=== PATIENT | male | born 1950 | race Caucasian/White ===

== ENCOUNTER 2016-11-18 07:29 | Emergency (ER) | payer MEDICARE, OTHER ==
--- NOTE | 2016-11-18 07:51 | ED Physician Documentation ---
Skin Rash - HISTORIAN Historian: patient - HPI Chief Complaint: Skin Rash Additional Information: tender swollen area Left scrotum x 2 days . stated that it drained some this am. Onset: days ago Timing: still present Duration: worse Location: other (Left groin scrotum) Quality: painful Identified Cause?: No Context: Medication Exposure: none Context: Food Exposure: none Further Comments: no - ROS CONST: none CVS/RESP: none EYES/ENT: none GI/: none MS/SKIN/LYMPH: none NEURO/PSYCH: none - PAST HX Past History: hypertension, other (copd) Surgeries/Procedures: Yes (appendix, Lung CA) Allergies/Adverse Reactions: Allergies Allergy/AdvReac Type Severity Reaction Status Date / Time oxycodone Allergy Severe Anaphylaxis Verified 11/18/16 07:40 Penicillins Allergy Severe Anaphylaxis Verified 11/18/16 07:40 diphenhydramine HCl AdvReac Severe Hallucinati Verified 11/18/16 07:40 [From Benadryl] ons Home Medications: Ambulatory Orders Medication Instructions Recorded Aspirin [Aspir 81] 81 mg PO DAILY u2 01/20/13 Diltiazem HCl [Cardizem LA] 240 mg PO D 02/14/15 Lisinopril [Zestril] 40 mg PO D 02/14/15 Pravastatin Sodium [Pravachol] 10 mg PO D 02/14/15 Albuterol Sulfate [Albuterol 1.25 mg INH DIRECTED 03/22/16 Sulfate] Albuterol Sulfate [Ventolin] 1 spray INH DIRECTED 03/22/16 Arformoterol Tartrate [Brovana] 1 pkg INH Q12 03/22/16 Budesonide [Budesonide] 1 spray INH Q12 03/22/16 Montelukast Sodium [Singulair] 10 mg PO D 03/22/16 - SOCIAL HX Smoking History: cigarettes, less than 1 pack/day Alcohol Use: none Drug Use: none - FAMILY HX Family History: other (AMI) - VITAL SIGNS Vital Signs: Vital Signs Temp Pulse Resp BP Pulse Ox 100.0 F H 82 18 143/51 95 11/18/16 07:43 11/18/16 07:43 11/18/16 07:43 11/18/16 07:43 11/18/16 07:43 - REVIEWED ASSESSMENTS Nursing Assessment Reviewed: Yes Vitals Reviewed: Yes Progress - Results/Orders Results/Orders: spoke with Dr Luis, surg resident at [facility] accepted transfer and said do ER ER transfer, when asked , the transfer nurse stated Dr Sena would notify the ER. I suggested POV transport and they agreed. Told all this to pt and he agreed. Pt told nothing PO on the way to their ER. Skin Rash Physical Exam - EXAM General Appearance: no acute distress, alert Skin: tender indurated area, pointing fluctuant with erythema Location: other (Left groin , scrotum) Character: erythematous Symptoms: warmth, tenderness, swelling, induration, thickening Extremities: non-tender EENT: eyes nml inspection Neck: trachea midline Respiratory: no resp distress CVS: reg. rate & rhythm Abdomen: non-tender Neuro/Psych: oriented x3 Discharge Clincal Impression: Scrotal abscess, Obesity (BMI 35.0-39.9 without comorbidity) Hypertension Qualifiers: Hypertension type: essential hypertension Qualified Code(s): I10 - Essential ( primary) hypertension Referrals: Irma Ortiz MD [Primary Care Provider] - 2 Days Home Medications: Ambulatory Orders Aspirin [Aspir 81] 81 mg PO DAILY u2 01/20/13 Diltiazem HCl [Cardizem LA] 240 mg PO D 02/14/15 Lisinopril [Zestril] 40 mg PO D 02/14/15 Pravastatin Sodium [Pravachol] 10 mg PO D 02/14/15 Albuterol Sulfate [Albuterol Sulfate] 1.25 mg INH DIRECTED 03/22/16 Albuterol Sulfate [Ventolin] 1 spray INH DIRECTED 03/22/16 Arformoterol Tartrate [Brovana] 1 pkg INH Q12 03/22/16 Budesonide [Budesonide] 1 spray INH Q12 03/22/16 Montelukast Sodium [Singulair] 10 mg PO D 03/22/16 Condition: Stable Disposition: 02 XFER SHT-TRM HOSP Decision to Admit: NO Date of Decison to Admit: 11/18/16 Decision Time: 08:18
[2016-11-18 08:29] VITALS: BP 147/62
== END 2016-11-18 08:27 | disposition short-term general hospital (02) ==
LOC: ED 07:29
DX: N49.2 Inflammatory disorders of scrotum (principal); E66.8 Other obesity; Z68.39 Body mass index [BMI] 39.0-39.9, adult
CPT/HCPCS: 99284

== ENCOUNTER 2016-11-23 09:58 | Outpatient (CLI) | payer MEDICARE, OTHER | END 2016-11-23 10:00 | LOC: INF 09:58 | PROVIDERS: ATTEND Family Medicine | DX: N49.2 Inflammatory disorders of scrotum (principal) | CPT/HCPCS: G0463 ==

== ENCOUNTER 2016-11-24 09:47 | Outpatient (CLI) | payer MEDICARE, OTHER | END 2016-11-24 10:00 | LOC: OUT 09:47 | PROVIDERS: ATTEND Family Medicine | DX: N49.2 Inflammatory disorders of scrotum (principal) | CPT/HCPCS: G0463 ==

== ENCOUNTER 2016-11-30 09:47 | Outpatient (CLI) | payer MEDICARE, OTHER | END 2016-11-30 11:04 | LOC: OUT 09:47 | PROVIDERS: ATTEND Family Medicine | DX: N49.2 Inflammatory disorders of scrotum (principal) | CPT/HCPCS: G0463 ==

== ENCOUNTER 2016-12-01 10:12 | Outpatient (CLI) | payer MEDICARE, OTHER | END 2016-12-01 10:14 | LOC: OUT 10:12 | PROVIDERS: ATTEND Family Medicine | DX: N49.2 Inflammatory disorders of scrotum (principal) | CPT/HCPCS: G0463 ==

== ENCOUNTER 2016-12-07 10:03 | Outpatient (CLI) | payer MEDICARE, OTHER | END 2016-12-07 10:04 | LOC: LAB 10:03 | PROVIDERS: ATTEND Family Medicine | DX: N49.2 Inflammatory disorders of scrotum (principal) | CPT/HCPCS: G0463 ==

== ENCOUNTER 2016-12-08 09:43 | Outpatient (CLI) | payer MEDICARE, OTHER | END 2016-12-08 09:44 | LOC: LAB 09:43 | PROVIDERS: ATTEND Family Medicine | DX: N49.2 Inflammatory disorders of scrotum (principal) | CPT/HCPCS: G0463 ==

== ENCOUNTER 2018-08-04 08:03 | Inpatient (IN) | payer MEDICARE, OTHER ==
--- NOTE | 2018-08-04 08:08 | ED Physician Documentation ---
Dyspnea - HISTORIAN Historian: patient - HPI Stated Complaint: shortness of breath Chief Complaint: Wheezing Additional Information: Patient, with PMH of COPD, CHF, Afib, HTN, lung cancer (s/p ZEN lobectomy) presents to ED with a 2 day history of increasing shortness of breath and wheezing. Patient reports cough started 2 days ago with some nasal congestion. He states his symptoms progressed ROLON after 10 minutes of exertion. Today he woke up more short of breath and wheezing. Patient has COPD and wears oxygen ( 2-3 liters) at night). During his last PCP appointment his "water pill" was increased for his lower extremity swelling. He states it hasn't helped much. Patient denies fever, chest pain, nausea/vomiting. Onset: days ago (2) Duration: continues in ED, worse Initiating Event: upper respiratory illness Severity: moderate Exacerbated By: exertion Associated Symptoms: chest discomfort, productive cough. denies: chills, fever, chest pain - ROS CONST: no problems EYES/ENT: nasal congestion GI/: denies: abdominal pain, vomiting, nausea NEURO/PSYCH: denies: headache MS/SKIN/LYMPH: denies: muscle aches - PAST HX Lung Disease: COPD Cardiac Disease: CHF PE Risk Factors: hypertension Surgeries/Procedures: other (lobectomy secondary to lung cancer) Other History: none Allergies/Adverse Reactions: Allergies Allergy/AdvReac Type Severity Reaction Status Date / Time oxycodone Allergy Severe Anaphylaxis Verified 08/04/18 08:25 Penicillins Allergy Severe Anaphylaxis Verified 08/04/18 08:25 diphenhydramine HCl AdvReac Severe Hallucinati Verified 08/04/18 08:25 [From Benadryl] ons Home Medications: Ambulatory Orders Medication Instructions Recorded Aspirin [Aspir 81] 81 mg PO DAILY u2 01/20/13 Diltiazem HCl [Cardizem LA] 240 mg PO D 02/14/15 Lisinopril [Zestril] 40 mg PO D 02/14/15 Pravastatin Sodium [Pravachol] 10 mg PO D 02/14/15 Albuterol Sulfate 1.25 mg INH DIRECTED 03/22/16 Albuterol Sulfate [Ventolin] 1 spray INH DIRECTED 03/22/16 Arformoterol (Nf) [Brovana] 1 pkg INH Q12 03/22/16 Budesonide 1 spray INH Q12 03/22/16 Montelukast Sodium [Singulair] 10 mg PO D 03/22/16 - SOCIAL HX Smoking History: cigarettes, greater than 1 pack/day, other (quit 2 months ago) Alcohol Use: none Drug Use: none - FAMILY HX Family History: none - VITAL SIGNS Vital Signs: Vital Signs Temp Pulse Resp BP Pulse Ox 147/62 11/18/16 08:27 - REVIEWED ASSESSMENTS Nursing Assessment Reviewed: Yes Vitals Reviewed: Yes Progress - Progress Progress: 0910 Discussed with Nadia Kumar NP, agrees with admission for pneumonia and respiratory failure. - EKG/XRAY/CT EKG: NSR Comments: 0810 NSR 96 bpm, left atrial enlargement ED Results Lab/Radiology - Radiology Radiology Impressions: Report Submission Date: Aug 04, 2018 8:45:33 AM CDT Patient Study Name: ZOILA SIMMONS Date: Aug 04, 2018 8:17:48 AM CDT Modality Type: DX Gender: M Description: CHEST 1VIEW : 46 Institution: [facility] Physician: MONICA AMOS Examination: Portable chest History: Copd shortness of breath Comparison exam: None provided. Findings: Portable views of the chest demonstrates a normal cardiac and mediastinal silhouette. Chronic interstitial changes. Parenchymal haziness at the left base obscuring the diaphragm. Acromioclavicular joint degenerative changes. Impression: Chronic interstitial changes. Left base hazy infiltrate/effusion. Electronically signed on Aug 04, 2018 8:45:33 AM CDT by: Kwesi Aly Dyspnea Physical Exam - EXAM General Appearance: no acute distress, alert EENT: MICHOACANO Neck: No: lymphadenopathy Respiratory: decreased air movement, wheezes (diffuse inspiratory/expiratory) CVS: reg. rate & rhythm, no murmur Abdomen: non-tender Skin: color nml, no rash Extremities: non-tender, edema (+1 pitting edema bilaterally to knee) Neuro/Psych: oriented x3, motor nml, mood/affect nml Discharge Clincal Impression: Acute respiratory failure with hypoxia Left lower lobe pneumonia Qualifiers: Pneumonia type: due to other aerobic Gram-negative bacteria Qualified Code(s): J15.6 - Pneumonia due to other Gram-negative bacteria Referrals: Irma Ortiz MD [Primary Care Provider] - 2 Days Condition: Fair Disposition: XFER SHT-TRM HOSP Decision to Admit: [id number] Date of Decison to Admit: 08/04/18 Decision Time: 09:13
[2018-08-04] MEDS ORDERED: IPRATROPIUM/ALBUTEROL SULFATE 3 ML AMPUL.NEB NEB ONE (08:10)
[2018-08-04] MEDS ORDERED: methylPREDNISolone SOD SUCC 125 MG/2 ML VIAL IVP ONE (08:10)
[2018-08-04 08:40] LABS: BASOPHILS % 1 % (0-2); HYPERSEGMENTED NEUTROPHILS PRESENT; SEGMENTED NEUTROPHILS % 73 % (39-79)
[2018-08-04 08:41] LABS: TEAR DROP CELLS 1+ (NEGATIVE)
--- NOTE | 2018-08-04 08:51 | Diagnostic Imaging Report ---
MONICA AMOS [facility] [address] [facility] [address] [place], [place]. [address] Report Submission Date: Aug 04, 2018 8:45:33 AM CDT Patient Study Name: ZOILA SIMMONS Date: Aug 04, 2018 8:17:48 AM CDT Modality Type: DX Gender: M Description: CHEST 1VIEW : 46 Institution: [facility] Physician: MONICA AMOS Examination: Portable chest History: Copd shortness of breath Comparison exam: None provided. Findings: Portable views of the chest demonstrates a normal cardiac and mediastinal silhouette. Chronic interstitial changes. Parenchymal haziness at the left base obscuring the diaphragm. Acromioclavicular joint degenerative changes. Impression: Chronic interstitial changes. Left base hazy infiltrate/effusion. Electronically signed on Aug 04, 2018 8:45:33 AM CDT by: Kwesi DAWSON
[2018-08-04 08:53] LABS: eGFR (Non-African) > 60
[2018-08-04] MEDS ORDERED: MONTELUKAST SODIUM 10 MG TABLET PO ONE (08:55)
[2018-08-04] MEDS ORDERED: FUROSEMIDE 40 MG/4 ML VIAL IVP ONE (08:55)
[2018-08-04] MEDS ORDERED: AZITHROMYCIN 500 MG in 0.9 % SODIUM CHLORIDE 250 ML IV ONE (08:55)
[2018-08-04] MEDS ORDERED: ONDANSETRON HCL 4 MG TAB.RAPDIS PO PRN (09:47)
[2018-08-04] MEDS ORDERED: HYDROcodone /APAP 5/325 1 EACH TABLET PO PRN (09:47)
[2018-08-04] MEDS ORDERED: DOCUSATE SODIUM 100 MG CAPSULE PO PRN (09:47)
[2018-08-04] MEDS ORDERED: ACETAMINOPHEN 325 MG TABLET PO PRN (09:47)
[2018-08-04] MEDS ORDERED: MAG HYDROX/ALUMINUM HYD/SIMETH 30 ML UDC PO PRN (09:47)
[2018-08-04 10:02] VITALS: BMI 40.1
[2018-08-04] MEDS: ASPIRIN EC 81 MG TABLET.DR PO SCH (10:50)
[2018-08-04] MEDS: ENOXAPARIN SODIUM 40 MG/0.4 ML DISP.SYRIN SQ SCH (10:50)
[2018-08-04] MEDS: BUDESONIDE 0.5MG/2ML AMPUL.NEB NEB SCH ×2 (10:50→20:25)
[2018-08-04] MEDS: IPRATROPIUM/ALBUTEROL SULFATE 3 ML AMPUL.NEB NEB SCH ×2 (11:44→17:35)
[2018-08-04] MEDS ORDERED: methylPREDNISolone SOD SUCC 40 MG/ML VIAL IVP SCH (13:00)
[2018-08-04] MEDS: LISINOPRIL 10 MG TABLET PO SCH (15:04)
[2018-08-04] MEDS: methylPREDNISolone SOD SUCC 40 MG/ML VIAL IVP SCH (20:25)
[2018-08-04] MEDS: traZODone HCL 50 MG TABLET PO SCH (20:25)
[2018-08-05] MEDS: IPRATROPIUM/ALBUTEROL SULFATE 3 ML AMPUL.NEB NEB SCH ×4 (00:30→18:20)
--- NOTE | 2018-08-05 06:41 | History and Physical Report ---
History of Present Illnes - History of Present Illness Reason for Visit: Exac. COPD History of Present Illness: Patient, with PMH of COPD, CHF, Afib, HTN, lung cancer (s/p ZEN lobectomy) presented to the ED with a 2 day history of increasing shortness of breath and wheezing. Patient reports cough started 2 days ago with some nasal congestion. He states his symptoms progressed ROLON after 10 minutes of exertion. Today he woke up more short of breath and wheezing. Patient has COPD and wears oxygen ( 2-3 liters) at night). During his last PCP appointment his "water pill" was increased for his lower extremity swelling. He states it hasn't helped much. Patient denies fever, chest pain, nausea/vomiting. - Past Medical History Cardiac: AFIB, CHF, HTN, Hyperlipidemia, Other (Obesity, Peripheral Artery Disease). 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 ) Domestic Violence: Negative - Health Maintenance Health Maintenance: Cholesterol, Influenza Vaccine Pneumonia Vaccine: Yes Resuscitation Status: Resusciation Status Resuscitation Status Full Code - Unable to Obtain History Unable to Obtain: No Review of Systems - Review of Systems Constitutional: Fever, Chills, Weakness Eyes: negative: conjunctivae inflammation, eyelid inflammation ENT: Nose Discharge Respiratory: Cough, Shortness of Breath, SOB with Excertion Cardiovascular: Paroxysmal Noc. Dyspnea. negative: Chest Pain, Palpitations Gastrointestinal: negative: Nausea, Vomiting, Abdominal Pain Genitourinary: negative: Dysuria Musculoskeletal: negative: Back Pain Skin: negative: Rash Neurological: Weakness - Medications/Allergies Allergies/Adverse Reactions: Allergies Allergy/AdvReac Type Severity Reaction Status Date / Time oxycodone Allergy Severe Anaphylaxis Verified 08/04/18 08:25 Penicillins Allergy Severe Anaphylaxis Verified 08/04/18 08:25 diphenhydramine HCl AdvReac Severe Hallucinati Verified 08/04/18 08:25 [From Benadryl] ons Current Inpatient Medications: Current Inpatient Medications Acetaminophen (Tylenol) 650 mg PO Q4H PRN PRN Reason: Fever >101 Hydrocodone Bitart/Acetaminophen ([place]on 5/325) 1 each PO Q6H PRN PRN Reason: Severe Pain (Score 8-10) Al Hydrox/Mg Hydrox/Simethicone (Mylanta) 30 ml PO Q6 PRN PRN Reason: Heartburn Albuterol/Ipratropium (Duoneb) 3 ml NEB Q6 [facility] Last Admin: 08/05/18 06:35 Dose: 3 ml Aspirin (Ecotrin) 81 mg PO DAILY [facility] Last Admin: 08/04/18 10:50 Dose: 81 mg Budesonide (Pulmicort) 0.5 mg NEB BID [facility] Last Admin: 08/04/18 20:25 Dose: 0.5 mg Diltiazem HCl (Cardizem Cd) 240 mg PO DAILY [facility] Last Admin: 08/04/18 15:04 Dose: Not Given Docusate Sodium (Colace) 200 mg PO DAILY PRN PRN Reason: Constipation Enoxaparin Sodium (Lovenox) 40 mg SQ DAILY [facility] Stop: 08/18/18 09:59 Last Admin: 08/04/18 10:50 Dose: 40 mg Guaifenesin (Mucinex) 600 mg PO BID PRN PRN Reason: Cough Azithromycin 500 mg/ Sodium (Chloride) 250 mls @ 125 mls/hr IV Q24H [facility] Stop: 08/15/18 08:59 Levofloxacin/Dextrose (Levaquin) 750 mg IV DAILY [facility] Last Admin: 08/04/18 13:07 Dose: 750 mg Lisinopril (Prinivil) 40 mg PO DAILY [facility] Last Admin: 08/04/18 15:04 Dose: Not Given Methylprednisolone Sodium Succinate (Solu-Medrol) 80 mg IVP BID [facility] Last Admin: 08/04/18 20:25 Dose: 80 mg Montelukast Sodium (Singulair) 10 mg PO DAILY [facility] Ondansetron HCl (Zofran Odt) 4 mg PO Q6H PRN PRN Reason: Nausea / Vomiting Trazodone HCl (Desyrel) 50 mg PO HS [facility] Last Admin: 08/04/18 20:25 Dose: 50 mg Exam - Exam Vital Signs: Vital Signs (72 hours) 08/04/18 08/04/18 08/04/18 08:06 09:26 09:44 Temperature 98.7 F 97.8 F 97.8 F Pulse Rate [ 75 Left] Pulse Rate [ 100 H 85 85 Right Pulse ox] Respiratory 28 H 20 20 Rate Blood Pressure 140/52 140/52 [Left Arm] Blood Pressure 141/57 141/57 [Right Arm] O2 Sat by Pulse 86 L 93 93 Oximetry 08/04/18 08/04/18 08/04/18 09:51 09:55 13:37 Temperature 97.8 F 97.8 F 98.6 F Pulse Rate [ 85 75 94 H Left] Pulse Rate [ Right Pulse ox] Respiratory 20 20 22 Rate Blood Pressure 140/52 140/52 121/47 [Left Arm] Blood Pressure [Right Arm] O2 Sat by Pulse 93 93 92 Oximetry 08/04/18 08/04/18 08/04/18 14:00 18:00 20:58 Temperature 97.4 F L 98.0 F Pulse Rate [ 93 H 99 H 91 H Left] Pulse Rate [ 85 Right Pulse ox] Respiratory 18 18 20 Rate Blood Pressure 104/49 133/66 [Left Arm] Blood Pressure [Right Arm] O2 Sat by Pulse 92 95 Oximetry 08/04/18 08/05/18 08/05/18 22:00 01:46 05:25 Temperature 98.3 F 98.6 F Pulse Rate [ 94 H 93 H Left] Pulse Rate [ 110 H Right Pulse ox] Respiratory 20 20 20 Rate Blood Pressure 128/57 136/61 [Left Arm] Blood Pressure [Right Arm] O2 Sat by Pulse 95 94 Oximetry General: Alert, Oriented to Person, Oriented to Place, Oriented to Time, Cooperative, Moderate distress, Obese HEENT: PERRLA, Nose Mucous membr. moist/[place], Poor Dentition Neck: Normal Range of Motion Carotids: no bruit Lungs: Rhonchi Cardiovascular: Normal S1, Normal S2 Peripheral Edema: generalized Peripheral Pulses: 2+ Abdomen: Normal bowel sounds, Distended Integumentary: Normal, Dry, Pale Extremities: Normal pulses Neurological: Normal gait, Strength Equal Bilat, Sensation intact Psych/Mental Status: Mental status NL, Mood NL, Appropriate Affect - Laboratory Results Laboratory Results: Laboratory Results 08/04/18 08/04/18 08/04/18 08:15 08:15 08:15 WBC 11.80 RBC 5.18 Hgb 15.8 Hct 46.5 MCV 90.0 MCH 30.5 MCHC 33.9 RDW 14.5 H Plt Count 146 Seg Neutrophils % 73 Band Neutrophils % 2 Lymphocytes % 10 L Monocytes % 6 Eosinophils % 1 Basophils % 1 Metamyelocytes % 1 H Hypersegmented Neuts Present Reactive Lymphocytes 6 H Poikilocytosis 1+ H Tear Drop Cells 1+ H Sodium 138 Potassium 4.0 Chloride 100 Carbon Dioxide 31 H BUN 18 Creatinine 1.03 Estimated Creat Clear 130 Est GFR ( Amer) > 60 Est GFR (Non-Af Amer) > 60 Glucose 113 H Calcium 9.4 Total Bilirubin 1.0 AST 30 ALT 24 Alkaline Phosphatase 60 Troponin I < 0.012 L NT-Pro-B Natriuret Pep 873.0 H Total Protein 7.6 Albumin 4.2 Assessment/Plan - Assessment/Plan (1) Acute respiratory failure with hypoxia Status: Acute Plan: Will treat COPD/ CHF- with IV steroids, IV antibiotics, cultures pending, schedu led HFN treatments, IS (2) Hyperlipidemia Status: Acute Qualifiers: Hyperlipidemia type: pure hypercholesterolemia Qualified Code(s): E78.00 - Pure hypercholesterolemia, unspecified; E78.0 - Pure hypercholesterolemia Plan: Continue with home medications (3) Hypertension Status: Acute Qualifiers: Hypertension type: essential hypertension Qualified Code(s): I10 - Essential (primary) hypertension Plan: Will continue with home medication regimen and monitor BP every 4 hours and PRN (4) Left lower lobe pneumonia Status: Acute Qualifiers: Pneumonia type: due to other aerobic Gram-negative bacteria Qualified Code(s): J15.6 - Pneumonia due to other Gram-negative bacteria Plan: Will treat with IV steroids, IV antibiotics, cultures pending, scheduled HFN treatments, IS (5) Smoker Status: Acute Comment: 04/15 PPD Plan: Patient recently quit smoking- offered nicotine patch (refused at this time) (6) COPD (chronic obstructive pulmonary disease) Status: Acute Qualifiers: COPD type: COPD with acute exacerbation Qualified Code(s): J44.1 - Chronic obstructive pulmonary disease with (acute) exacerbation Plan: will treat with IV steroids, IV antibiotics, cultures pending, scheduled HFN treatments, IS VTE Assessment - RISK FACTOR SCORE VTE RISK FACTOR SCORES: AGE OVER 60 YEARS, OBESITY, ACUTE RESPIRATORY FAILURE/SEVERE COPD, SMOKER - RISK VTE HIGH RISK: SCORE OF 3-4 (RISK PROXIMAL DVT 4-8%) PROPHYLAXIS NEEDED (Lovenox daily, ambulation, IS)
[2018-08-05] MEDS: guaiFENesin 600 MG TAB.ER.12H PO PRN (08:53)
[2018-08-05] MEDS: ASPIRIN EC 81 MG TABLET.DR PO SCH (08:54)
[2018-08-05] MEDS: ENOXAPARIN SODIUM 40 MG/0.4 ML DISP.SYRIN SQ SCH (08:55)
[2018-08-05] MEDS: LISINOPRIL 10 MG TABLET PO SCH ×2 (08:55→12:10)
[2018-08-05] MEDS: methylPREDNISolone SOD SUCC 40 MG/ML VIAL IVP SCH ×2 (08:55→20:37)
[2018-08-05] MEDS: DOCUSATE SODIUM 100 MG CAPSULE PO SCH ×2 (08:58→20:37)
[2018-08-05] MEDS: MONTELUKAST SODIUM 10 MG TABLET PO SCH (08:58)
[2018-08-05] MEDS: BUDESONIDE 0.5MG/2ML AMPUL.NEB NEB SCH ×2 (09:03→20:44)
[2018-08-05] MEDS: AZITHROMYCIN 500 MG in 0.9 % SODIUM CHLORIDE 250 ML IV SCH (10:15)
[2018-08-05] MEDS: POLYETHYLENE GLYCOL 3350 17 GM POWD.PACK PO SCH (11:36)
[2018-08-05] MEDS: traZODone HCL 50 MG TABLET PO SCH (20:37)
[2018-08-06] MEDS: IPRATROPIUM/ALBUTEROL SULFATE 3 ML AMPUL.NEB NEB SCH ×4 (00:30→17:48)
--- NOTE | 2018-08-06 06:23 | Inpatient Progress Note ---
Subjective - Required Recertification Statement I anticipate X number of days because-include discharge plan: 2 - Review of Systems Events since last encounter: Patient sitting up in bedside chair this morning- still experiencing increased shortness of breath with any exertion- he is requiring oxygen at all times- desats without it. He is cooperative with treatment- using IS and completing scheduled breathing treatments. He has been having low grade temps. He is having difficulty getting to the bathroom without becoming extremely dyspneic and tachypneic. Patient is not yet ready for discharge- he will require further IV steroids, IV antibiotics, Scheduled breathing treatments and nursing assistance. General: Fatigue HEENT: Sinus Congestion. Denies: Head Aches Pulmonary: Dyspnea, Cough Cardiovascular: Paroxysmal Noc. Dyspnea. Denies: Chest Pain Gastrointestinal: Denies: Nausea, Vomiting, Abdominal Pain Genitourinary: Denies: Dysuria Musculoskeletal: Denies: Back Pain Neurological: Weakness Objective - Exam Vitals and I&O: Vital Signs Temp 97.9 F 08/06/18 05:31 Pulse 76 08/06/18 05:31 Resp 20 08/06/18 05:31 BP 125/57 08/06/18 05:31 Pulse Ox 94 08/06/18 05:31 Intake & Output 08/05/18 08/05/18 08/06/18 11:59 23:59 11:59 Intake Total 1080 480 480 Output Total 800 875 Balance 4414 -806 -424 Weight 141.521 kg 141.521 kg Intake: Oral 1080 480 480 Output: Urine 800 875 Other: Voiding Method Toilet Toilet # Voids 6 1 # Bowel Movements 0 General: Alert, Oriented to Person, Oriented to Place, Oriented to Time, Cooperative, Moderate distress, Obese HEENT: PERRLA, Nose Mucous membr. moist/Zeigler Neck: Supple, +2 carotid pulse wo bruit Lungs: Rhonchi, Decreased Air Movement Cardiovascular: Normal S1, Normal S2 Abdomen: Normal bowel sounds, No tenderness Extremities: No clubbing, Normal pulses Skin: Warm, Dry, Pale Neurological: Normal speech, Strength Equal Bilat, Sensation intact Psych/Mental Status: Mental status NL, Mood NL, Appropriate Affect, Intact Judgment - Results Results: Laboratory Results WBC 11.80 K/ul (4.00-12.00) 08/04/18 08:15 RBC 5.18 M/ul (3.90-5.20) 08/04/18 08:15 Hgb 15.8 g/dL (12.0-18.0) 08/04/18 08:15 Hct 46.5 % (37.0-53.0) 08/04/18 08:15 MCV 90.0 fl (80.0-100.0) 08/04/18 08:15 MCH 30.5 pg (28.0-34.0) 08/04/18 08:15 MCHC 33.9 g/dL (30.0-36.0) 08/04/18 08:15 RDW 14.5 % (11.3-14.3) H 08/04/18 08:15 Plt Count 146 K/mm3 (130-400) 08/04/18 08:15 Seg Neutrophils % 73 % (39-79) 08/04/18 08:15 Band Neutrophils % 2 % (0-12) 08/04/18 08:15 Lymphocytes % 10 % (16-50) L 08/04/18 08:15 Monocytes % 6 % (0-11) 08/04/18 08:15 Eosinophils % 1 % (0-7) 08/04/18 08:15 Basophils % 1 % (0-2) 08/04/18 08:15 Metamyelocytes % 1 % (0-0) H 08/04/18 08:15 Hypersegmented Neuts Present 08/04/18 08:15 Reactive Lymphocytes 6 % (0-5) H 08/04/18 08:15 Poikilocytosis 1+ (NEGATIVE) H 08/04/18 08:15 Tear Drop Cells 1+ (NEGATIVE) H 08/04/18 08:15 Sodium 138 mmol/L (137-145) 08/04/18 08:15 Potassium 4.0 mmol/L (3.5-5.1) 08/04/18 08:15 Chloride 100 mmol/L (98-107) 08/04/18 08:15 Carbon Dioxide 31 mmol/L (22-30) H 08/04/18 08:15 BUN 18 mg/dL (9-20) 08/04/18 08:15 Creatinine 1.03 mg/dL (0.66-1.25) 08/04/18 08:15 Estimated Creat Clear 130 08/04/18 08:15 Est GFR ( Amer) > 60 (60-) 08/04/18 08:15 Est GFR (Non-Af Amer) > 60 (60-) 08/04/18 08:15 Glucose 113 mg/dL (74-106) H 08/04/18 08:15 Calcium 9.4 mg/dL (8.4-10.2) 08/04/18 08:15 Total Bilirubin 1.0 mg/dL (0.2-1.3) 08/04/18 08:15 AST 30 U/L (15-46) 08/04/18 08:15 ALT 24 U/L (0-50) 08/04/18 08:15 Alkaline Phosphatase 60 U/L (38-126) 08/04/18 08:15 Troponin I < 0.012 ng/mL (0.012-0.034) L 08/04/18 08:15 NT-Pro-B Natriuret Pep 873.0 pg/mL (11.1-125.0) H 08/04/18 08:15 Total Protein 7.6 g/dL (6.3-8.2) 08/04/18 08:15 Albumin 4.2 g/dL (3.5-5.0) 08/04/18 08:15 Assessment/Plan - Assessment/Plan (1) COPD (chronic obstructive pulmonary disease) Status: Acute Qualifiers: COPD type: COPD with acute exacerbation Qualified Code(s): J44.1 - Chronic obstructive pulmonary disease with (acute) exacerbation Assessment: Patient has rhonchi throughout- shortness of breath with any exertion Plan: Will treat with IV steroids, IV antibiotics, cultures pending, scheduled HFN treatments, IS (2) Left lower lobe pneumonia Status: Acute Qualifiers: Pneumonia type: due to other aerobic Gram-negative bacteria Qualified Code(s): J15.6 - Pneumonia due to other Gram-negative bacteria Assessment: Rhonchi heard throughout- dry cough- low grade fevers- shortness of breath with exertion Plan: Will treat with IV steroids, IV antibiotics, cultures pending, scheduled HFN treatments, IS
[2018-08-06] MEDS: LISINOPRIL 10 MG TABLET PO SCH (08:15)
[2018-08-06] MEDS: ASPIRIN EC 81 MG TABLET.DR PO SCH (08:15)
[2018-08-06] MEDS: ENOXAPARIN SODIUM 40 MG/0.4 ML DISP.SYRIN SQ SCH (08:15)
[2018-08-06] MEDS: DOCUSATE SODIUM 100 MG CAPSULE PO SCH ×2 (08:16→22:12)
[2018-08-06] MEDS: methylPREDNISolone SOD SUCC 40 MG/ML VIAL IVP SCH ×2 (08:16→22:13)
[2018-08-06] MEDS: MONTELUKAST SODIUM 10 MG TABLET PO SCH (08:16)
[2018-08-06] MEDS: BUDESONIDE 0.5MG/2ML AMPUL.NEB NEB SCH ×2 (08:28→22:35)
[2018-08-06] MEDS: AZITHROMYCIN 500 MG in 0.9 % SODIUM CHLORIDE 250 ML IV SCH (09:46)
[2018-08-06] MEDS: POLYETHYLENE GLYCOL 3350 17 GM POWD.PACK PO SCH (10:37)
--- NOTE | 2018-08-06 20:34 | Diagnostic Imaging Report ---
[facility] [address] [address] [facility] [address] [place], [place]. [address] Report Submission Date: Aug 06, 2018 8:12:32 AM CDT Patient Study Name: ZOILA SIMMONS Date: Aug 06, 2018 7:40:04 AM CDT Modality Type: DX Gender: M Description: CHEST 2VIEW : 46 Institution: [facility] Physician: [facility] Examination: PA and lateral chest. History: Evaluate lung mohan. Comparison exam: 04 August 2018 Findings: PA and lateral views of the chest demonstrates a normal cardiac and mediastinal silhouette. Tortuous aorta. Interstitial prominence. No focal infiltrate. Mild left costophrenic margin blunting. Osseous structures are appropriate for age. Impression: Interstitial prominence suggesting increased volume status. Electronically signed on Aug 06, 2018 8:12:32 AM CDT by: Kwesi DAWSON
[2018-08-06] MEDS: traZODone HCL 50 MG TABLET PO SCH (22:13)
[2018-08-06] MEDS: guaiFENesin 600 MG TAB.ER.12H PO PRN (22:13)
[2018-08-07] MEDS: IPRATROPIUM/ALBUTEROL SULFATE 3 ML AMPUL.NEB NEB SCH ×4 (00:25→18:17)
--- NOTE | 2018-08-07 07:06 | Inpatient Progress Note ---
Subjective - Required Recertification Statement I anticipate X number of days because-include discharge plan: 1 - Review of Systems Events since last encounter: Patient sitting up in bedside chair this morning- still having some shortness of breath with exertion however, patient states that he is feeling much better- he is still requiring oxygen at all times- desats without it. He is cooperative with treatment- using IS and completing scheduled breathing treatments. Discussed switching patient to SNF tomorrow- evaluation completed by OT and stated that patient would qualify. Patient is very appreciative but he would like to go home tomorrow. He states that he has a nebulizer at home and has access to get medications and will take them as directed. We will continue with IV steroids, IV antibiotics x2 , and breathing treatments today- if patient does well and keeps improving-we will discharge to home tomorrow. General: Denies: Chills, Night Sweats HEENT: Denies: Head Aches, Sinus Congestion Pulmonary: Dyspnea, Cough Cardiovascular: Denies: Chest Pain Gastrointestinal: Denies: Nausea, Vomiting, Abdominal Pain Genitourinary: Denies: Dysuria Musculoskeletal: Denies: Back Pain Neurological: Denies: Weakness Objective - Exam Vitals and I&O: Vital Signs Temp 97.4 F L 08/07/18 05:57 Pulse 70 08/07/18 06:00 Resp 20 08/07/18 06:00 BP 120/48 08/07/18 05:57 Pulse Ox 95 08/07/18 05:57 Intake & Output 08/06/18 08/06/18 08/07/18 11:59 23:59 11:59 Intake Total 840 490 120 Output Total 875 500 525 Balance -35 -10 -405 Weight 141.521 kg 141.521 kg Intake: IV 10 0 Right Antecubital 10 0 Oral 840 480 120 Output: Urine 875 500 525 Other: Voiding Method Toilet Urinal Urinal # Voids 1 2 1 # Bowel Movements 1 General: Alert, Oriented to Person, Oriented to Place, Oriented to Time, Cooperative, Mild distress, Obese HEENT: PERRLA, Mouth Mucous membr. moist/[place], Nose Mucous membr. moist/[place] Neck: Supple, +2 carotid pulse wo bruit Lungs: Normal air movement, Speaks full Sentences, Rhonchi Cardiovascular: Regular rate, Normal S1, Normal S2 Abdomen: Normal bowel sounds, Soft Extremities: Normal pulses Skin: Normal, [place], Warm, Dry Neurological: Normal gait, Normal speech, Strength Equal Bilat, Normal tone, Sensation intact Psych/Mental Status: Mental status NL, Mood NL, Appropriate Affect, Intact Judgment - Results Results: Laboratory Results WBC 11.80 K/ul (4.00-12.00) 08/04/18 08:15 RBC 5.18 M/ul (3.90-5.20) 08/04/18 08:15 Hgb 15.8 g/dL (12.0-18.0) 08/04/18 08:15 Hct 46.5 % (37.0-53.0) 08/04/18 08:15 MCV 90.0 fl (80.0-100.0) 08/04/18 08:15 MCH 30.5 pg (28.0-34.0) 08/04/18 08:15 MCHC 33.9 g/dL (30.0-36.0) 08/04/18 08:15 RDW 14.5 % (11.3-14.3) H 08/04/18 08:15 Plt Count 146 K/mm3 (130-400) 08/04/18 08:15 Seg Neutrophils % 73 % (39-79) 08/04/18 08:15 Band Neutrophils % 2 % (0-12) 08/04/18 08:15 Lymphocytes % 10 % (16-50) L 08/04/18 08:15 Monocytes % 6 % (0-11) 08/04/18 08:15 Eosinophils % 1 % (0-7) 08/04/18 08:15 Basophils % 1 % (0-2) 08/04/18 08:15 Metamyelocytes % 1 % (0-0) H 08/04/18 08:15 Hypersegmented Neuts Present 08/04/18 08:15 Reactive Lymphocytes 6 % (0-5) H 08/04/18 08:15 Poikilocytosis 1+ (NEGATIVE) H 08/04/18 08:15 Tear Drop Cells 1+ (NEGATIVE) H 08/04/18 08:15 Sodium 138 mmol/L (137-145) 08/04/18 08:15 Potassium 4.0 mmol/L (3.5-5.1) 08/04/18 08:15 Chloride 100 mmol/L (98-107) 08/04/18 08:15 Carbon Dioxide 31 mmol/L (22-30) H 08/04/18 08:15 BUN 18 mg/dL (9-20) 08/04/18 08:15 Creatinine 1.03 mg/dL (0.66-1.25) 08/04/18 08:15 Estimated Creat Clear 130 08/04/18 08:15 Est GFR ( Amer) > 60 (60-) 08/04/18 08:15 Est GFR (Non-Af Amer) > 60 (60-) 08/04/18 08:15 Glucose 113 mg/dL (74-106) H 08/04/18 08:15 Calcium 9.4 mg/dL (8.4-10.2) 08/04/18 08:15 Total Bilirubin 1.0 mg/dL (0.2-1.3) 08/04/18 08:15 AST 30 U/L (15-46) 08/04/18 08:15 ALT 24 U/L (0-50) 08/04/18 08:15 Alkaline Phosphatase 60 U/L (38-126) 08/04/18 08:15 Troponin I < 0.012 ng/mL (0.012-0.034) L 08/04/18 08:15 NT-Pro-B Natriuret Pep 873.0 pg/mL (11.1-125.0) H 08/04/18 08:15 Total Protein 7.6 g/dL (6.3-8.2) 08/04/18 08:15 Albumin 4.2 g/dL (3.5-5.0) 08/04/18 08:15 Assessment/Plan - Assessment/Plan (1) COPD (chronic obstructive pulmonary disease) Status: Acute Qualifiers: COPD type: COPD with acute exacerbation Qualified Code(s): J44.1 - Chronic obstructive pulmonary disease with (acute) exacerbation Plan: Will treat with IV steroids, IV antibiotics, cultures pending, scheduled HFN treatments, IS (2) Left lower lobe pneumonia Status: Acute Qualifiers: Pneumonia type: due to other aerobic Gram-negative bacteria Qualified Code(s): J15.6 - Pneumonia due to other Gram-negative bacteria Assessment: patient able to speak full sentences- activity improving Plan: Will treat with IV steroids, IV antibiotics, cultures pending, scheduled HFN treatments, IS
[2018-08-07] MEDS: LISINOPRIL 10 MG TABLET PO SCH (08:12)
[2018-08-07] MEDS: ASPIRIN EC 81 MG TABLET.DR PO SCH (08:13)
[2018-08-07] MEDS: ENOXAPARIN SODIUM 40 MG/0.4 ML DISP.SYRIN SQ SCH (08:13)
[2018-08-07] MEDS: DOCUSATE SODIUM 100 MG CAPSULE PO SCH ×2 (08:13→22:00)
[2018-08-07] MEDS: MONTELUKAST SODIUM 10 MG TABLET PO SCH (08:13)
[2018-08-07] MEDS: methylPREDNISolone SOD SUCC 40 MG/ML VIAL IVP SCH ×2 (08:15→21:59)
[2018-08-07] MEDS: BUDESONIDE 0.5MG/2ML AMPUL.NEB NEB SCH ×2 (08:30→22:00)
[2018-08-07] MEDS: AZITHROMYCIN 500 MG in 0.9 % SODIUM CHLORIDE 250 ML IV SCH (10:17)
[2018-08-07] MEDS: POLYETHYLENE GLYCOL 3350 17 GM POWD.PACK PO SCH (12:20)
[2018-08-07] MEDS: traZODone HCL 50 MG TABLET PO SCH (21:58)
[2018-08-08] MEDS: IPRATROPIUM/ALBUTEROL SULFATE 3 ML AMPUL.NEB NEB SCH ×2 (01:59→06:39)
[2018-08-08 06:32] LABS: SEGMENTED NEUTROPHILS % 86 % (39-79)
--- NOTE | 2018-08-08 06:45 | Diagnostic Imaging Report ---
ARNIE DAVIS [facility] [address] [facility] [address] [place] [address]. [phone] Report Submission Date: Aug 08, 2018 6:35:34 AM CDT Patient Study Name: ZOILA SIMMONS Date: Aug 08, 2018 6:06:23 AM CDT Modality Type: DX Gender: M Description: CHEST 2VIEW : 46 Institution: [facility] Physician: ARNIE DAVIS HISTORY: 67-year-old male with COPD, swelling of ankles, former smoker. COMPARISON: Chest x-rays dated 08/06/2018 and 08/04/2018. TECHNIQUE: 2 views of the chest were performed. FINDINGS: There is mild diffuse prominence of the interstitial markings. There is bibasilar lung scarring. The lungs are hyperexpanded with flattening of the diaphragm on the lateral film. No pneumothorax or new infiltrates. The heart is not enlarged. There is thoracic degenerative disc disease with multiple bridging syndesmophytes. IMPRESSION: 1. Mild prominence of the interstitial markings is stable and may represent mild CHF or interstitial fibrosis. 2. Pulmonary hyperexpansion suggestive of COPD. 3. Thoracic spondylosis with some degree of ankylosis. Electronically signed on Aug 08, 2018 6:35:34 AM CDT by: Marcos DAWSON
[2018-08-08 06:48] LABS: eGFR (Non-African) > 60
--- NOTE | 2018-08-08 06:57 | Discharge Summary ---
Discharge Summary - Discharge [facility] Admission Date: 08/04/18 Discharge Date: 08/08/18 History of Present Illness: Patient, with PMH of COPD, CHF, Afib, HTN, lung cancer (s/p ZEN lobectomy) presented to the ED with a 2 day history of increasing shortness of breath and w heezing. Patient reports cough started 2 days ago with some nasal congestion. He states his symptoms progressed ROLON after 10 minutes of exertion. Today he woke up more short of breath and wheezing. Patient has COPD and wears oxygen ( 2-3 liters) at night). During his last PCP appointment his "water pill" was increased for his lower extremity swelling. He states it hasn't helped much. Patient denies fever, chest pain, nausea/vomiting. Condition at Discharge: Stable Home Medications: Ambulatory Orders Medication Instructions Recorded Aspirin [Aspir 81] 81 mg PO DAILY u2 01/20/13 Diltiazem HCl [Cardizem LA] 240 mg PO D 02/14/15 Lisinopril [Zestril] 40 mg PO D 02/14/15 Pravastatin Sodium [Pravachol] 10 mg PO D 02/14/15 Albuterol Sulfate 1.25 mg INH DIRECTED 03/22/16 Albuterol Sulfate [Ventolin] 1 spray INH DIRECTED 03/22/16 Arformoterol (Nf) [Brovana] 1 pkg INH Q12 03/22/16 Budesonide 1 spray INH Q12 03/22/16 Montelukast Sodium [Singulair] 10 mg PO D 03/22/16 Ipratropium [place] 0.2 mg IH Q6 #120 ml 08/04/18 Montelukast Sodium [Singulair] 10 mg PO HS #30 tablet 08/04/18 Azithromycin [Zithromax] 250 mg PO DAILY #4 tablet 08/07/18 Levofloxacin [Levaquin] 500 mg PO DAILY #10 tablet 08/07/18 Prednisone 10 mg PO DAILY #40 tablet 08/07/18 Consultations this Visit: None Procedures this Visit: None Allergies/Adverse Reactions: Allergies Allergy/AdvReac Type Severity Reaction Status Date / Time oxycodone Allergy Severe Anaphylaxis Verified 08/04/18 08:25 Penicillins Allergy Severe Anaphylaxis Verified 08/04/18 08:25 diphenhydramine HCl AdvReac Severe Hallucinati Verified 08/04/18 08:25 [From Chetan] ons Discharge Summary: Patient, with PMH of COPD, CHF, Afib, HTN, lung cancer (s/p ZEN lobectomy) was admitted from the ED with a 2 day history of increasing shortness of breath and wheezing. Patient has COPD and wears oxygen ( 2-3 liters) at night). Patient denied any fever, chest pain, nausea/vomiting. He was admitted for COPD, Pnemonia, and Hypoxia. Patient was placed on telemetry, oxygen, scheduled breathing treatments, antibiotics x 2, IV steroids, lovenox daily, and IS. He has greatly improved and wants to go home. He will sweet pickle maker prescriptions for oral antibiotics and steroids. He will make PCP appointment next week. Hospital Course: IV steroids, IV antibiotics x 2, scheduled duonebs, telemetry, VTE prophalaxis, IS - Final Diagnosis (1) COPD (chronic obstructive pulmonary disease) Problems: stable- no smoking- will continue steroids and breathing treatments Right or Left: Right (2) Left lower lobe pneumonia Problems: stable- will continue oral antibiotics and breathing treatments Right or Left: Right
[2018-08-08] MEDS: ENOXAPARIN SODIUM 40 MG/0.4 ML DISP.SYRIN SQ SCH (08:49)
[2018-08-08] MEDS: LISINOPRIL 10 MG TABLET PO SCH (08:50)
[2018-08-08] MEDS: DOCUSATE SODIUM 100 MG CAPSULE PO SCH (08:51)
[2018-08-08] MEDS: ASPIRIN EC 81 MG TABLET.DR PO SCH (08:51)
[2018-08-08] MEDS: MONTELUKAST SODIUM 10 MG TABLET PO SCH (08:52)
[2018-08-08 08:53] VITALS: BP 119/50
[2018-08-08] MEDS: methylPREDNISolone SOD SUCC 40 MG/ML VIAL IVP SCH (09:01)
[2018-08-08] MEDS: BUDESONIDE 0.5MG/2ML AMPUL.NEB NEB SCH (09:05)
[2018-08-08] MEDS: AZITHROMYCIN 500 MG in 0.9 % SODIUM CHLORIDE 250 ML IV SCH (11:02)
== END 2018-08-08 10:40 | disposition home or self-care (01) | DRG 189 ==
LOC: ED 08:03 → SOUTH 09:22
PROVIDERS: ADMIT Nurse Practitioner Family; ATTEND Nurse Practitioner Family
DX: J96.01 Acute respiratory failure with hypoxia (principal); J15.6 Pneumonia due to other Gram-negative bacteria; J44.0 Chronic obstructive pulmonary disease with (acute) lower respiratory infection; J44.1 Chronic obstructive pulmonary disease with (acute) exacerbation; Z68.41 Body mass index [BMI] 40.0-44.9, adult; I11.0 Hypertensive heart disease with heart failure; I50.9 Heart failure, unspecified; E66.9 Obesity, unspecified; I73.9 Peripheral vascular disease, unspecified; E78.00 Pure hypercholesterolemia, unspecified; I48.91 Unspecified atrial fibrillation; Z79.82 Long term (current) use of aspirin; Z79.899 Other long term (current) drug therapy; Z99.81 Dependence on supplemental oxygen; Z87.891 Personal history of nicotine dependence; Z85.118 Personal history of other malignant neoplasm of bronchus and lung; Z90.2 Acquired absence of lung [part of]; Z88.5 Allergy status to narcotic agent; Z88.0 Allergy status to penicillin; Z88.8 Allergy status to other drugs, medicaments and biological substances; Z90.49 Acquired absence of other specified parts of digestive tract; Z87.81 Personal history of (healed) traumatic fracture
CPT/HCPCS: 71045; 71046; 80053; 83880; 84484; 85025; 93005; 94640; 94760; 97116; 97161; 97165; 97535; J0456; J1030; J1650; J1940; J2930; J7050; J7626; 99284; J2920; S1016

== ENCOUNTER 2018-08-23 16:48 | Emergency (ER) | payer MEDICARE, OTHER ==
[2018-08-23] MEDS ORDERED: ASPIRIN 81 MG CHEW TAB PO ONE (16:52)
--- NOTE | 2018-08-23 17:13 | ED Physician Documentation ---
General Adult - HISTORIAN Historian: patient - HPI Stated Complaint: right sided chest pain Chief Complaint: General Adult (Right sided chest/rib pain) Additional Information: Patient is a 67-year-old male who presents to the ER with muscle spasms to the right rib area that started yesterday morning and has continued to spasm. He denies any cardiac chest pain or unusual shortness of breath. He states it hurts the right rib area to take a deep breath or cough. Onset: days ago (Started yesterday morning) Timing: still present, pain intermittent (with deep breaths) Severity: mild Modifying Factors: sleeps in recliner Location: home Further Comments: no - ROS CONST: no problems EYES/ENT: none CVS/RESP: cough GI/: none MS/SKIN/LYMPH: none NEURO/PSYCH: denies: dizziness - PAST HX Past History: COPD, A-Fib, CHF, hypertension, other (PAD, Obesity, ) Other History: none Surgeries/Procedures: other (appy, arthroscopy, left lobectomy, pilonidal cyst, scapula fx, wrist fx) Immunizations: influenza, pneumovax, UTD Allergies/Adverse Reactions: Allergies Allergy/AdvReac Type Severity Reaction Status Date / Time oxycodone Allergy Severe Anaphylaxis Verified 08/23/18 17:02 Penicillins Allergy Severe Anaphylaxis Verified 08/23/18 17:02 diphenhydramine HCl AdvReac Severe Hallucinati Verified 08/23/18 17:02 [From [place]] ons Home Medications: Ambulatory Orders Medication Instructions Recorded Aspirin [Aspir 81] 81 mg PO DAILY u2 01/20/13 Diltiazem HCl [Cardizem LA] 240 mg PO D 02/14/15 Lisinopril [Zestril] 40 mg PO D 02/14/15 Pravastatin Sodium [Pravachol] 10 mg PO D 02/14/15 Albuterol Sulfate [Ventolin] 1 spray INH DIRECTED 03/22/16 Arformoterol (Nf) [Brovana] 1 pkg INH Q12 03/22/16 Ipratropium [place] 0.2 mg IH Q6 #120 ml 08/04/18 Cyclobenzaprine HCl [Flexeril] 10 mg PO DAILY PRN #30 tablet 08/23/18 - SOCIAL HX Smoking History: quit less than 1 year, cigarettes Alcohol Use: none Drug Use: none - FAMILY HX Family History: No - VITAL SIGNS Vital Signs: Vital Signs Temp Pulse Resp BP Pulse Ox 98.2 F 95 H 21 116/95 92 08/23/18 16:57 08/23/18 16:57 08/23/18 16:57 08/23/18 16:57 08/23/18 16:57 - REVIEWED ASSESSMENTS Nursing Assessment Reviewed: Yes Vitals Reviewed: Yes ED Results Lab/Radiology - Radiology Radiology Impressions: Take flexeril 10 mg by mouth three times a day as needed for muscle spasms May use heating pad to the affected area Try to lay flat and stretch as much as possible Follow up with PCP this week for re-evaluation - Orders Orders: ED Orders Category Date Time Status Continuous EKG monitoring Q30M Care 08/23/18 16:52 Active Continuous Pulse Oximetry Q30M Care 08/23/18 16:[address] IV Lock 1T Care 08/23/18 16:52 Active CHEST 2VIEW [RAD] Stat Exams 08/23/18 Ordered CBC/PLATELET/DIFF Routine Lab 08/23/18 16:52 Received CMP Routine Lab 08/23/18 16:52 Received CREATINE KINASE Routine Lab 08/23/18 16:52 Received TROPONIN I Stat Lab 08/23/18 16:52 Received Aspirin [Merle] Med 08/23/18 16:52 Discontinued 324 mg PO NOW ONE Oxygen Daily Oxygen 08/23/18 17:00 Ordered EKG WITH COMPARISON Stat Ther 08/23/18 16:52 Ordered General Adult Physical Exam - PHYSICAL EXAM GENERAL APPEARANCE: mild distress EENT: eye inspection normal, ENT inspection normal, pharynx normal, [place] NECK: normal inspection RESPIRATORY: breath sounds normal, other (right sided chest tenderness) CVS: heart sounds normal, equal pulses ABDOMEN: soft, normal bowel sounds BACK: normal inspection SKIN: warm/dry, normal color EXTREMITIES: non-tender, normal range of motion NEURO: oriented X3, CN's nml as tested, motor nml, sensation nml, mood/affect nml, cognition normal Discharge Clincal Impression: Muscle spasm Prescriptions: Cyclobenzaprine HCl [Flexeril] 10 mg PO DAILY PRN #30 tablet PRN Reason: muscle spasm Referrals: Irma Ortiz MD [Primary Care Provider] - 2 Days Additional Instructions: Take flexeril 10 mg by mouth three times a day as needed for muscle spasms May use heating pad to the affected area Try to lay flat and stretch as much as possible Follow up with PCP this week for re-evaluation Condition: Good Disposition: 01 HOME, SELF-CARE Decision to Admit: NO Decision Time: 17:52
[2018-08-23 17:14] LABS: MEAN CORPUSCULAR HEMOGLOBIN 30.6 pg (28.0-34.0)
[2018-08-23 17:15] LABS: EOSINOPHILS % 2 % (0-7); MONOCYTES % 6 % (0-11); SEGMENTED NEUTROPHILS % 71 % (39-79)
[2018-08-23 17:26] LABS: eGFR (Non-African) > 60
--- NOTE | 2018-08-23 17:33 | Diagnostic Imaging Report ---
JOSE ANTONIO DAVIS ED [facility] [address] [facility] [address] [place], [place]. [address] Report Submission Date: August 23, 2018 5:31:01 PM CDT Patient Study Name: ZOILA SIMMONS Date: August 23, 2018 5:06:25 PM CDT Modality Type: DX Gender: M Description: CHEST 2VIEW : 46 Institution: [facility] Physician: JOSE ANTONIO DAVIS ED Two view chest Clinical history: Chest pain Findings: The heart size is normal. The pulmonary vasculature is normal. No pleural effusion, pneumothorax or alveolar consolidation. The unchanged prominence interstitial markings bilaterally with unchanged findings of air trapping. Impression: Stable chest exam without acute disease Electronically signed on August 23, 2018 5:31:01 PM CDT by: Jose Maria DAWSON
[2018-08-23] MEDS ORDERED: CYCLOBENZAPRINE HCL 10 MG TABLET PO ONE (17:45)
[2018-08-23 17:59] VITALS: BP 132/78
== END 2018-08-23 17:50 | disposition home or self-care (01) ==
LOC: ED 16:48
DX: M62.838 Other muscle spasm (principal)
CPT/HCPCS: 36415; 71046; 80053; 82550; 84484; 85025; 99283; 99284; S1016